=== PATIENT | female | born 1960 | race Caucasian/White ===

== ENCOUNTER 2016-11-10 17:31 | Emergency (ER) | payer OTHER ==
[~2016-11-10] VITALS: Ht 165.1 cm; Wt 63.5 kg
[2016-11-10 17:34] VITALS: BP 124/79
[2016-11-10 18:01] VITALS: BP 124/79
--- NOTE | 2016-11-10 18:01 | Emergency Room Report ---
History of Present Illness General Chief Complaint: Seizure Source: Patient, EMS Present Illness HPI This patient is brought in by EMS. Apparently she was observed to have a seizure at work. Patient states that she does have a history of seizures. Patient states that she is on medications for seizures. Patient states that she has a new job and would like to get back to work. She is refusing all further evaluation. She does not want any labs or other testing. The patient states that she feels back to her baseline and is demanding to leave. Patient denies recent illness. She has no other complaints. Allergies: Coded Allergies: No Known Allergies (Unverified , 04/23/15) Patient History Past Medical History: see triage record, seizures Social History: Reports: smoking Now: No Reviewed Nursing Documentation: PMH: Agreed, PSxH: Agreed Nursing Documentation-PMH Hx Neurological Problems: Yes - Seizures Hx Seizures: Yes Review of Systems All Other Systems: negative except mentioned in HPI Physical Exam Vital Signs Date Time Temp Pulse Resp B/P Pulse Ox O2 Delivery O2 Flow Rate FiO2 11/10/16 17:24 81 18 124/79 96 Room Air Sp02 EP Interpretation: reviewed, normal General Appearance: no apparent distress, alert, GCS 15, non-toxic Head: normocephalic, atraumatic Eyes: bilateral eye PERRL, bilateral eye normal inspection ENT: hearing grossly normal, normal pharynx, no angioedema, normal voice Neck: normal inspection Respiratory: no respiratory distress, no retraction, no accessory muscle use, speaking full sentences Cardiovascular #1: no edema Rectal: deferred Musculoskeletal: back normal, gait/station normal, normal range of motion, non- tender Neurologic: alert, oriented x3, responsive, motor strength/tone normal, sensory intact, speech normal Psychiatric: judgement/insight normal, memory normal, mood/affect normal, no suicidal/homicidal ideation Skin: normal color, no rash, warm/dry, well hydrated Medical Decision Making Diagnostic Impression: Primary Impression: Seizure disorder ER Course This patient has a history of seizure disorder. The patient is planning to leave. The patient is competent to make her own medical decisions. I did discuss with the patient that I would not be able to assess her for any infection, electrolyte abnormalities, etc. Patient states that she be seen and he underwent an MRI of her brain and this was unremarkable. She states she has a history of seizures and feels better. The patient states that she is a little bit sleep deprived dehydrated and this triggers her seizures. Patient states that she does not drive and only walks. The patient left AGAINST MEDICAL ADVICE. Last Vital Signs Date Time Temp Pulse Resp B/P Pulse Ox O2 Delivery O2 Flow Rate FiO2 11/10/16 17:24 81 18 124/79 96 Room Air Disposition: AGAINST MEDICAL ADVICE Condition: Stable ALBIN NASH D.O. Nov 10, 2016 18:01
[2016-11-10] MEDS ORDERED: CARBAMAZEPINE200 M4 ORAL (18:07)
[2016-11-10] MEDS ORDERED: VIMPAT200 MG PO (18:07)
== END 2016-11-10 18:05 | disposition left against medical advice (07) ==
LOC: EDBD 17:31 → EMR 18:05
DX: G40.909 Epilepsy, unspecified, not intractable, without status epilepticus (principal); F17.200 Nicotine dependence, unspecified, uncomplicated
CPT/HCPCS: 99282